=== PATIENT | male | born 1970 | race Two or more races ===

== ENCOUNTER → 2016-12-05 | Outpatient (REF) | payer OTHER | LOC: M SFHCADAM 10:08 | PROVIDERS: ATTEND Family Medicine | DX: M54.5 Low back pain (principal); Z77.090 Contact with and (suspected) exposure to asbestos; Z13.220 Encounter for screening for lipoid disorders; Z53.9 Procedure and treatment not carried out, unspecified reason ==

== ENCOUNTER → 2016-12-05 | Outpatient (CLI) | payer OTHER ==
--- NOTE | 2016-12-05 10:50 | REP ---
Clinical: Lower back pain . Technique: AP, lateral, bilateral oblique, and coned-down views. Findings: Alignment and lordosis is maintained. The vertebral bodies including transverse process and spinous processes are intact and without acute fracture / compression injury or subluxation. Mild degenerative change include endplate sclerosis and disc space narrowing at the L5 S1 level as well as subtle anterior spurring at the L4 superior endplate. No evidence for spondylolysis or spondylolisthesis. Impression: Relatively age-appropriate examination. Mild disc disease at the L5-L1 level and L4 superior endplate. Signed by Suresh Lewis MD 12/05/2016 10:41 A
== END ==
LOC: M ADAMS 10:13
PROVIDERS: ATTEND Family Medicine
DX: M54.5 Low back pain (principal)

== ENCOUNTER → 2016-12-07 | Outpatient (REF) | payer OTHER ==
[2016-12-07 16:39] LABS: MEAN CORPUSCULAR HEMOGLOBIN 30.9 pg (27.0-33.0); MEAN CORPUSCULAR VOLUME 85.7 fl (80.0-96.0); WHITE BLOOD COUNT 8.2 K/mm3 (4.0-10.0)
[2016-12-07 17:06] LABS: ALBUMIN 4.2 GM/DL (3.2-5.2); ALBUMIN/GLOBULIN RATIO 1.24 (1.00-1.93); BILIRUBIN,TOTAL 0.5 MG/DL (0.2-1.0); CALCIUM LEVEL 8.8 MG/DL (8.5-10.1); CREATININE FOR GFR 1.4 MG/DL (0.70-1.30); GLOMERULAR FILTRATION RATE 58.6 (>60); POTASSIUM SERUM 4.6 MEQ/L (3.5-5.1); TOTAL PROTEIN 7.6 GM/DL (6.4-8.2)
== END ==
LOC: M SFHCADAM 15:27
PROVIDERS: ATTEND Family Medicine
DX: M54.5 Low back pain (principal); Z77.090 Contact with and (suspected) exposure to asbestos; Z13.220 Encounter for screening for lipoid disorders

== ENCOUNTER 2017-04-07 01:04 | Emergency (ER) | payer OTHER ==
[2017-04-07] MEDS: NORCO, ANEXSIA 5/325MG TABLET (HYDROcodone/ACETAMINOPHEN) PO (01:51)
[2017-04-07] MEDS: AMOXICILLIN 500 MG CAP PO (01:52)
== END 2017-04-07 01:57 | disposition home or self-care (01) ==
LOC: M ED 01:04
DX: K02.9 Dental caries, unspecified (principal); K04.7 Periapical abscess without sinus
CPT/HCPCS: 99282

== ENCOUNTER → 2022-04-02 | Outpatient (CLI) | payer OTHER ==
[~2022-04-02] MED LIST: AMOX500C PO; HYDR-3715 PO
== END ==
LOC: M WUC 13:16
PROVIDERS: ATTEND Physician Assistant
DX: M76.61 Achilles tendinitis, right leg (principal)

== ENCOUNTER → 2022-08-30 | Outpatient (CLI) | payer OTHER ==
[2022-08-30 20:02] LABS: BASO # 0.1 10^3/uL (0.0-0.2); BASO % 0.6 % (0.0-1.0); EOS # 0.1 10^3/uL (0.0-0.5); EOS % 0.8 % (0.0-3.0); HEMATOCRIT 43.6 % (42.0-52.0); HEMOGLOBIN 15.5 g/dl (13.5-17.5); LYMPH # 2.2 10^3/uL (1.5-5.0); LYMPH % 20.9 % (24.0-44.0); MEAN CORPUSCULAR HEMOGLOBIN 32.7 pg (27.0-33.0); MEAN CORPUSCULAR HGB CONC 35.6 g/dl (32.0-36.5); MONO # 0.8 10^3/uL (0.0-0.8); MONO % 7.8 % (2.0-8.0); NEUTROPHILS # 7.2 10^3/uL (1.5-8.5); NEUTROPHILS % 69.5 % (36.0-66.0); PLATELET COUNT, AUTOMATED 247 10^3/uL (150-450); RED BLOOD COUNT 4.74 10^6/uL (4.30-6.10); WHITE BLOOD COUNT 10.4 10^3/uL (4.0-10.0)
[2022-08-30 20:08] LABS: URIC ACID 9.6 MG/DL (3.7-9.2)
[2022-08-30 20:12] LABS: ALBUMIN 4.3 G/DL (3.2-5.2); ALKALINE PHOSPHATASE 103 U/L (46-116); ALT/SGPT 40 U/L (7.0-40); AST/SGOT 21 U/L (<34); BILIRUBIN,TOTAL 0.7 MG/DL (0.3-1.2); BLOOD UREA NITROGEN 17 MG/DL (9-23); CALCIUM LEVEL 8.7 MG/DL (8.5-10.1); CARBON DIOXIDE LEVEL 27 MMOL/L (20-31); CHLORIDE LEVEL 106 MMOL/L (98-107); CREATININE FOR GFR 1.23 MG/DL (0.70-1.30); GLOMERULAR FILTRATION RATE > 60.0 (>56); GLUCOSE, FASTING 89 MG/DL (60-100); POTASSIUM SERUM 4.3 MMOL/L (3.5-5.1); SODIUM LEVEL 140 MMOL/L (136-145); TOTAL PROTEIN 7.4 G/DL (5.7-8.2)
== END ==
LOC: M RAD 18:37
PROVIDERS: ATTEND Physician Assistant
DX: L03.115 Cellulitis of right lower limb (principal); M77.51 Other enthesopathy of right foot and ankle

== ENCOUNTER → 2024-10-27 | Outpatient (CLI) | payer OTHER | LOC: M WUC 08:48 | PROVIDERS: ATTEND Student in an Organized Health Care Education/Training Program | DX: M25.532 Pain in left wrist (principal) ==

== ENCOUNTER → 2024-12-27 | Outpatient (CLI) | payer OTHER | LOC: M WUC 12:31 | PROVIDERS: ATTEND Physician Assistant Medical | DX: M25.561 Pain in right knee (principal) ==